=== PATIENT | female | born 1990 | race African-American/Black ===

== ENCOUNTER 2017-02-12 08:12 | Inpatient (IN) | payer MEDICAID, OTHER ==
[~2017-02-12] VITALS: Ht 165.1 cm; Wt 67.2 kg
[2017-02-12] VITALS (9 sets, daily range): BP systolic 98–142; BP diastolic 54–72; PULSE 66–83; RESP 11–21; TEMP 97.6–98.9; O2SAT 93–97
[~2017-02-12 08:12] MED LIST: ALBU8I INH; FOLI1 PO; GABA100C4 PO
--- NOTE | 2017-02-12 08:45 | PD ---
HPI Chief Complaint: Chest Pain Time Seen by Provider: 08:45 Travel History International Travel<30 days: No Contact w/Intl Traveler<30days: No Traveled to known affect area: No History of Present Illness HPI 26-year-old female came to the emergency room with history of chest pain that started at 7 in the morning while she was walking. Patient says that the pain worsened as time progressed and she called 911. She was brought in by EMS. Pain is at the center of the chest and is tightening kind of sensation. She does have history of asthma. No difficulty breathing. Patient has history of sickle cell disease. Vital signs are stable when she arrived. Patient says her last admission for sickle cell crisis was 2 months ago. No aggravating or relieving factors identified. FOR[facility]LY [facility] Past Medical History Narrative Medical List of her past medical, surgical, social and family history is reviewed from the nursing note. Anemia: Yes Arthritis: No Asthma: Yes Autoimmune Disease: No Anxiety: No Depression: No Heart Rhythm Problems: No Cancer: No Cardiovascular Problems: Yes (HEART MURMUR ) Chemotherapy: No Chest Pain: No Congestive Heart Failure: No COPD: No Cerebrovascular Accident: No Diabetes: No Diminished Hearing: No Endocrine: No Gastrointestinal Disorders: Yes GERD: No Genitourinary: No Headaches: Yes Hiatal Hernia: No Immune Disorder: No Implanted Vascular Access Dvce: Yes (RIGHT CHEST PORT) Kidney Stones: No Musculoskeletal: No Neurologic: Yes Psychiatric: No Reproductive: No Respiratory: Yes ("CHRONIC LUNG DISEASE") Immunizations Current: Yes Migraines: No Pneumonia: Yes Radiation Therapy: No Renal Failure: No Seizures: Yes Sickle Cell Disease: Yes Sleep Apnea: No Thyroid Disease: No Ulcer: No ?: Not LMP: 12/31/2016 : 3 Para: 2 Miscarriage: 1 Tubal Ligation: Yes Past Surgical History Abdominal Surgery: Yes ( 2 liver biopsies) AICD: No Arteriovenous Shunt: No Body Medical Devices: screw in right hand Cardiac Surgery: No Section: Yes (X 2) Cholecystectomy: Yes Ear Surgery: No Endocrine Surgery: Yes Eye Surgery: No Genitourinary Surgery: No Gynecologic Surgery: Yes (tubal ligation, 2 c- sections) Insulin Pump: No Joint Replacement: No Oral Surgery: No Pacemaker: No Thoracic Surgery: No Other Surgery: Yes (PORT PLACEMENT) Social History Alcohol Use: No Tobacco Use: No Substance Use: No Allergies-Medications (Allergen,Severity, Reaction): Coded Allergies: metoclopramide (Verified Allergy, Severe, 02/12/17) morphine (Verified Allergy, Severe, 02/12/17) *MDRO Multi-Drug Resistant Organism (Verified Adverse Reaction, Unknown, 02/12/17) MRSA PCR Screen positive 08/04/14. Comments List of allergies reviewed from the nursing note. Reported Meds & Prescriptions Reported Meds & Active Scripts Active Folate 1 Mg Tab (Folic Acid) 1 Mg Tab 1 Mg PO DAILY 30 Days Reported Ventolin Hfa (Albuterol Sulfate) 8 Gm Aero 2 Puff INH Q4 * SHAKE WELL BEFORE USE * Gabapentin 100 Mg Cap 100 Mg PO TID Narrative Medication List of her home medications reviewed from the nursing note. Review of Systems Except as stated in HPI: all other systems reviewed are Neg Physical Exam Narrative GENERAL: Awake, alert, moderate distress SKIN: Focused skin assessment warm/dry. Pale HEAD: Atraumatic. Normocephalic. EYES: Pupils equal and round. No scleral icterus. No injection or drainage. ENT: No nasal bleeding or discharge. Mucous membranes pink and moist. NECK: Trachea midline. No JVD. CARDIOVASCULAR: Regular rate and rhythm. No murmur appreciated. RESPIRATORY: No accessory muscle use. Clear to auscultation. Breath sounds equal bilaterally. GASTROINTESTINAL: Abdomen soft, non-tender, nondistended. Hepatic and splenic margins not palpable. MUSCULOSKELETAL: No obvious deformities. No clubbing. No cyanosis. No edema. NEUROLOGICAL: Awake and alert. No obvious cranial nerve deficits. Motor grossly within normal limits. Normal speech. PSYCHIATRIC: Appropriate mood and affect; insight and judgment normal. Data Data Last Documented VS Vital Signs Date Time Temp Pulse Resp B/P (MAP) Pulse Ox O2 Delivery O2 Flow Rate FiO2 02/12/17 08:40 79 12 95 Nasal Cannula 2.00 02/12/17 08:40 98.9 105/58 (74) Orders Orders Electrocardiogram (02/12/17 ) Complete Blood Count With Diff (02/12/17 09:23) Retic Count (02/12/17 09:23) Chest, Pa & Lat (02/12/17 ) Sodium Chlor 0.9% 1000 Ml Inj (Ns 1000 M (02/12/17 09:30) Type And Screen (02/12/17 11:37) Red Blood Cells (Rbc) (02/12/17 11:37) Blood Product Administration (02/12/17 11:37) Sodium Chlor 0.9% 250 Ml Inj (Ns 250 Ml (02/12/17 11:45) Hydromorphone Pf Inj (Dilaudid Pf Inj) (02/12/17 11:45) Sodium Chlor 0.9% 1000 Ml Inj (Ns 1000 M (02/12/17 11:45) Folic Acid (Folate) (02/12/17 11:45) Admit To Inpatient (02/12/17 ) Code Status (02/12/17 12:05) Vital Signs (Adult) Q4H (02/12/17 12:05) Activity Oob With Assistance (02/12/17 12:05) Diet Regular Basic (02/12/17 Lunch) Sodium Chlor 0.9% 1000 Ml Inj (Ns 1000 M (02/12/17 12:05) Sodium Chloride 0.9% Flush (Ns Flush) (02/12/17 12:15) Sodium Chloride 0.9% Flush (Ns Flush) (02/12/17 21:00) Acetaminophen (Tylenol) (02/12/17 12:15) Ondansetron Inj (Zofran Inj) (02/12/17 12:15) Comprehensive Metabolic Panel (02/13/17 06:00) Complete Blood Count With Diff (02/13/17 06:00) Case Management Consult (02/12/17 12:05) Acetaminophen (Tylenol) (02/12/17 12:15) Acetamin-Hydrocod 325-5 Mg ([place] 5-325 (02/12/17 12:15) Oxycodone-Acetamin 10-325 Mg (Percocet 1 (02/12/17 12:15) Hydromorphone Pf Inj (Dilaudid Pf Inj) (02/12/17 12:15) Naloxone Inj (Narcan Inj) (02/12/17 12:15) Magnesium Hydroxide Liq (Milk Of Magnesi (02/12/17 12:15) Inpatient Certification (02/12/17 ) Ldh Serum (02/12/17 12:13) Enoxaparin Inj (Lovenox Inj) (02/13/17 09:00) Admit Order (Ed Use Only) (02/12/17 12:21) Labs Laboratory Tests Test 02/12/17 10:28 White Blood Count 18.3 TH/MM3 Red Blood Count 1.91 MIL/MM3 Hemoglobin 6.7 GM/DL Hematocrit 18.7 % Mean Corpuscular Volume 97.8 FL Mean Corpuscular Hemoglobin 35.0 PG Mean Corpuscular Hemoglobin Concent 35.8 % Red Cell Distribution Width 23.9 % Platelet Count 386 TH/MM3 Mean Platelet Volume 9.1 FL Neutrophils (%) (Auto) 62.2 % Lymphocytes (%) (Auto) 20.5 % Monocytes (%) (Auto) 14.7 % Eosinophils (%) (Auto) 1.4 % Basophils (%) (Auto) 1.2 % Neutrophils # (Auto) 11.3 TH/MM3 Lymphocytes # (Auto) 3.8 TH/MM3 Monocytes # (Auto) 2.7 TH/MM3 Eosinophils # (Auto) 0.3 TH/MM3 Basophils # (Auto) 0.2 TH/MM3 CBC Comment AUTO DIFF Differential Total Cells Counted 100 Neutrophils % (Manual) 60 % Band Neutrophils % 1 % Lymphocytes % 24 % Monocytes % 10 % Eosinophils % 3 % Basophils % 1 % Neutrophils # (Manual) 11.3 TH/MM3 Myelocytes 1 % Nucleated Red Blood Cells 13 /100 WBC Differential Comment FINAL DIFF MANUAL Platelet Estimate NORMAL Platelet Morphology Comment NORMAL Polychromasia 5.8 % Sickle Cells 1+ Target Cells 1+ Ngo-[place] Bodies PRESENT MDM Medical Decision Making Medical Screen Exam Complete: Yes Emergency Medical Condition: Yes Medical Record Reviewed: Yes Interpretation(s) Twelve-lead EKG was reviewed by me. Normal sinus rhythm, normal axis, anterior T-wave inversions. Heart rate of 94 bpm. Differential Diagnosis Painful crisis, chest pain syndrome Narrative Course 12:27 PM blood test results of back and patient is significantly anemic. I have ordered 2 units of blood transfusion. Patient has been admitted to the hospitalist. She was given IV fluid and pain medication. Critical Care Narrative Aggregate critical care time was 30 minutes. Time to perform other separately billable procedures was not included in the critical care time. My time did not include minutes spent treating any other patients simultaneously or on activities that did not directly contribute to the patient's treatment. The services I provided to this patient were to treat and/or prevent clinically significant deterioration that could result in: Sickle cell crisis, anemia, blood transfusion I provided critical care services requiring my management, as noted below: Chart data review, documentation time, medication orders and management, vital sign assessments/reviewing monitor data, ordering and reviewing lab tests, ordering and interpreting/reviewing x-rays and diagnostic studies, care of the patient and discussion of the patient with the admitting physicians. Procedures EKG Prior to Arrival: No Diagnosis Primary Impression: Sickle cell pain crisis Additional Impressions: Chest pain Qualified Codes: R07.9 - Chest pain, unspecified Sickle cell anemia Qualified Codes: D57.00 - Hb-SS disease with crisis, unspecified Admitting Information Admitting Physician Requests: Meghan Avila MD Feb 12, 2017 08:45
[2017-02-12] MEDS ORDERED: SODIUM CHLOR 0.9% 1000 ML INJ 1,000 ML IV ONE ×2 (09:30→11:45)
--- NOTE | 2017-02-12 09:47 | RADRPT ---
EXAM DATE/TIME: 02/12/2017 09:45 [facility] COMPARISON: CHEST PA & LAT, November 29, 2014, 0:25. INDICATIONS : Chest pain. MEDICAL HISTORY : Hypertension. asthma. SURGICAL HISTORY : None. Port placement. ENCOUNTER: Initial ACUITY: 1 day PAIN SCORE: 10/10 LOCATION: middle chest. FINDINGS: The supporting good position. Lungs are clear. Left-sided line is noted. The heart and pulmonary va scularity are normal. The portion of the bony skeleton visualized is unremarkable. CONCLUSION: Lungs are clear. Rick Gallegos MD FACR on February 12, 2017 at 9:45 Board Certified Radiologist. This report was verified electronically.
[2017-02-12 10:41] LABS: AUTOMATED NEUTROPHIL # 11.3 TH/MM3 (1.8-7.7); BASOPHIL # 0.2 TH/MM3 (0-0.2); BASOPHIL % 1.2 % (0.0-2.0); EOSINOPHIL # 0.3 TH/MM3 (0-0.4); EOSINOPHIL % 1.4 % (0.0-4.0); LYMPH % 20.5 % (9.0-44.0); LYMPHOCYTE # 3.8 TH/MM3 (1.0-4.8); MEAN CELL VOLUME 97.8 FL (80.0-100.0); MEAN CORPUSCULAR HGB CONC 35.8 % (32.0-36.0); MONO % 14.7 % (0.0-8.0); NEUT % 62.2 % (16.0-70.0); PLATELET COUNT 386 TH/MM3 (150-450); RED BLOOD COUNT 1.91 MIL/MM3 (4.00-5.30); RED CELL DISTRIBUTION WIDTH 23.9 % (11.6-17.2); WHITE BLOOD COUNT 18.3 TH/MM3 (4.0-11.0)
[2017-02-12 10:43] LABS: HEMO FLAGS AUTO DIFF
[2017-02-12 10:46] LABS: HEMATOCRIT 18.7 % (35.0-46.0)
[2017-02-12 11:23] LABS: BANDS 1 % (0-6); BASOPHILS 1 % (0-2); CORRECTED NUCLEATED RBC 13 /100 WBC (0-0); EOSINOPHILS 3 % (0-4); MYELOCYTES 1 % (0-0); NEUTROPHIL # MANUAL DIFF 11.3 TH/MM3 (1.8-7.7); POLYS (SEG NEUTROPHILS) 60 % (16-70); WBC DIFF SAMPLE 100
[2017-02-12 11:24] LABS: HOWELL-JOLLY BODIES PRESENT (NONE SEEN); PLATELET ESTIMATE SMEAR NORMAL (NORMAL); PLATELET MORPHOLOGY NORMAL (NORMAL); POLYCHROMASIA 5.8 % (0.0-1.9); SICKLE CELLS 1+ (NORMAL); TARGET CELLS 1+ (NORMAL)
[2017-02-12 11:25] LABS: SCAN/DIFF FINAL DIFF MANUAL
[2017-02-12] MEDS ORDERED: FOLIC ACID 1 MG TAB PO ONE (11:45)
[2017-02-12] MEDS ORDERED: HYDROmorphone HCL PF 1 MG/ML VIAL IV PUSH ONE (11:45)
[2017-02-12] MEDS ORDERED: SODIUM CHLOR 0.9% 250 ML INJ 250 ML IV ONE (11:45)
[2017-02-12] MEDS ORDERED: SODIUM CHLOR 0.9% 1000 ML INJ 1,000 ML IV SCH (12:05)
--- NOTE | 2017-02-12 12:11 | HHI.HP ---
[facility] Admission Diagnosis Diagnoses: (1) Gastroenteritis (2) Sickle cell pain crisis (3) Sickle cell anemia Chief Complaint: Chest pain, nausea, diarrhea and vomiting Travel History International Travel<30 Days: No Contact w/Intl Traveler <30 Da: No Traveled to Known Affected Are: No History of Present Illness 26-year-old female with a history of sickle cell anemia presented to the ED via [facility] for evaluation of an acute and worsening symptoms of chest pain with radiation to her back as well as upper extremities, which patient states is similar to her sickle cell crisis pain. She rated her pain over 8 in intensity. She also reported episodes of diarrhea and emesis yesterday however resolved early this morning but continued to have nausea. She states, she may have eaten some chicken 2 nights ago. Review of Systems Except as stated in HPI: all other systems reviewed are Neg Past Family Social History Past Medical History Sickle Cell disease Asthma Right chest port Elevated Liver function tests Questionable Cirrhosis Iron Overload Severe Chronic Anemia Past Surgical History Cholecystectomy Liver biopsy x 2 C section x 2 Tubal ligation Double lumen port placement Right hand surgery post trauma Reported Medications Folate 1 Mg Tab (Folic Acid) 1 Mg Tab 1 Mg PO DAILY 30 Days Hydroxyurea 500 mg twice a day Ventolin Hfa (Albuterol Sulfate) 8 Gm Aero 2 Puff INH Q4 * SHAKE WELL BEFORE USE * Gabapentin 100 Mg Cap 100 Mg PO TID Allergies: Coded Allergies: metoclopramide (Verified Allergy, Severe, 02/12/17) morphine (Verified Allergy, Severe, 02/12/17) *MDRO Multi-Drug Resistant Organism (Verified Adverse Reaction, Unknown, 02/12/17) MRSA PCR Screen positive 08/04/14. Family History Mom with sickle cell trait, diabetes type 2, hypertension, factor V Leiden deficiency, heart disease Dad with sickle cell trait One sister with thalassemia Social History Alcohol Use: No Tobacco Use: No Substance Use: No Physical Exam Vital Signs Vital Signs Date Time Temp Pulse Resp B/P (MAP) Pulse Ox O2 Delivery O2 Flow Rate FiO2 02/12/17 08:40 79 12 95 Nasal Cannula 2.00 02/12/17 08:40 98.9 79 12 105/58 (74) 95 Nasal Cannula 2.00 Physical Exam GENERAL: This is a well-nourished, well-developed patient, in no apparent distress. SKIN: No rashes, ecchymoses or lesions. Cool and dry. HEAD: Atraumatic. Normocephalic. No temporal or scalp tenderness. EYES: Pupils equal round and reactive. Extraocular motions intact. No scleral icterus. No injection or drainage. ENT: Nose without bleeding, purulent drainage or septal hematoma. Throat without erythema, tonsillar hypertrophy or exudate. Uvula midline. Airway patent. NECK: Trachea midline. No JVD or lymphadenopathy. Supple, nontender, no meningeal signs. CARDIOVASCULAR: Regular rate and rhythm without murmurs, gallops, or rubs. RESPIRATORY: Clear to auscultation. Breath sounds equal bilaterally. No wheezes , rales, or rhonchi. GASTROINTESTINAL: Abdomen soft, non-tender, nondistended. No hepato-splenomegaly , or palpable masses. No guarding. MUSCULOSKELETAL: Extremities without clubbing, cyanosis, or edema. No joint tenderness, effusion, or edema noted. No calf tenderness. Negative Homans sign bilaterally. NEUROLOGICAL: Awake and alert. Cranial nerves II through XII intact. Motor and sensory grossly within normal limits. Five out of 5 muscle strength in all muscle groups. Normal speech. Laboratory Laboratory Tests Test 02/12/17 10:28 White Blood Count 18.3 Red Blood Count 1.91 Hemoglobin 6.7 Hematocrit 18.7 Mean Corpuscular Volume 97.8 Mean Corpuscular Hemoglobin 35.0 Mean Corpuscular Hemoglobin Concent 35.8 Red Cell Distribution Width 23.9 Platelet Count 386 Mean Platelet Volume 9.1 Neutrophils (%) (Auto) 62.2 Lymphocytes (%) (Auto) 20.5 Monocytes (%) (Auto) 14.7 Eosinophils (%) (Auto) 1.4 Basophils (%) (Auto) 1.2 Neutrophils # (Auto) 11.3 Lymphocytes # (Auto) 3.8 Monocytes # (Auto) 2.7 Eosinophils # (Auto) 0.3 Basophils # (Auto) 0.2 CBC Comment AUTO DIFF Differential Total Cells Counted 100 Neutrophils % (Manual) 60 Band Neutrophils % 1 Lymphocytes % 24 Monocytes % 10 Eosinophils % 3 Basophils % 1 Neutrophils # (Manual) 11.3 Myelocytes 1 Nucleated Red Blood Cells 13 Differential Comment FINAL DIFF MANUAL Platelet Estimate NORMAL Platelet Morphology Comment NORMAL Polychromasia 5.8 Sickle Cells 1+ Target Cells 1+ Ngo-[place] Bodies PRESENT Result Diagram: 02/12/17 1028 Imaging Last Impressions Chest X-Ray 02/12/17 0000 Signed Impressions: Service Date/Time: Sunday, February 12, 2017 09:45 - CONCLUSION: Lungs are clear. Rick Gallegos MD FACR Caprini VTE Risk Assessment Caprini VTE Risk Assessment: No/Low Risk (score <= 1) Caprini Risk Assessment Model Point Value = 1 Point Value = 2 Point Value = 3 Point Value = 5 Age 41-60 Minor surgery BMI > 25 kg/m2 Swollen legs Varicose veins or History of unexplained or recurrent spontaneous Oral contraceptives or hormone replacement Sepsis (< 1 month) Serious lung disease, including pneumonia (< 1 month) Abnormal pulmonary function Acute myocardial infarction Congestive heart failure (< 1 month) History of inflammatory bowel disease Medical patient at bed rest Age 61-74 Arthroscopic surgery Major open surgery (> 45 min) Laparoscopic surgery (> 45 min) Malignancy Confined to bed (> 72 hours) Immobilizing plaster cast Central venous access Age >= 75 History of VTE Family history of VTE Factor V Leiden Prothrombin [id number] Lupus anticoagulant Anticardiolipin antibodies Elevated serum homocysteine Heparin-induced thrombocytopenia Other congenital or acquired thrombophilia Stroke (< 1 month) Elective arthroplasty Hip, pelvis, or leg fracture Acute spinal cord injury (< 1 month) Prophylaxis Regimen Total Risk Factor Score Risk Level Prophylaxis Regimen 0-1 Low Early ambulation 2 Moderate Order ONE of the following: *Sequential Compression Device (SCD) *Heparin 5000 units SQ BID 3-4 Higher Order ONE of the following medications: *Heparin 5000 units SQ TID *Enoxaparin/Lovenox 40 mg SQ daily (WT < 150 kg, CrCl > 30 mL/min) *Enoxaparin/Lovenox 30 mg SQ daily (WT < 150 kg, CrCl > 10-29 mL/min) *Enoxaparin/Lovenox 30 mg SQ BID (WT < 150 kg, CrCl > 30 mL/min) AND/OR *Sequential Compression Device (SCD) 5 or more Highest Order ONE of the following medications: *Heparin 5000 units SQ TID (Preferred with Epidurals) *Enoxaparin/Lovenox 40 mg SQ daily (WT < 150 kg, CrCl > 30 mL/min) *Enoxaparin/Lovenox 30 mg SQ daily (WT < 150 kg, CrCl > 10-29 mL/min) *Enoxaparin/Lovenox 30 mg SQ BID (WT < 150 kg, CrCl > 30 mL/min) AND *Sequential Compression Device (SCD) Assessment and Plan Problem List: (1) Sickle cell pain crisis ICD Code: D57.00 - Sickle cell pain crisis Status: Acute (2) Sickle cell anemia ICD Code: D57.1 - Sickle cell anemia Status: Chronic (3) Gastroenteritis ICD Code: K52.9 - Noninfective gastroenteritis and colitis, unspecified Assessment and Plan 26-year-old female with Vaso-occlusive pain crisis Sickle cell crisis Chest x-ray noted and review by me without any cardio pulmonary disease The chest pain likely as the result of emesis and not acute chest syndrome Start Aggressive IV fluid hydration Management with IV parenteral pain control along with by mouth narcotics when necessary Monitor LDH and reticulocyte counts Consider hematology consultation Sickle cell anemia Transfuse 2 units packed red blood cell and monitor H&H Sickle cell disease Hold hydroxyurea Resume folate Gastroenteritis Resolving, continue with IV fluid hydration and antiemetic DVT prophylaxis: Lovenox Code Status Full code Discussed Condition With Patient, ED physician Physician Certification 2 Midnight Certification Type: Admission for Inpatient Services Order for Inpatient Services The services are ordered in accordance with Medicare regulations or non- Medicare payer requirements, as applicable. In the case of services not specified as inpatient-only, they are appropriately provided as inpatient services in accordance with the 2-midnight benchmark. Estimated LOS (days): 2 days is the estimated time the patient will need to remain in the hospital, assuming treatment plan goals are met and no additional complications. Post-Hospital Plan: Not yet determined Problem Qualifiers (1) Sickle cell anemia: Qualified Codes: D57.00 - Hb-SS disease with crisis, unspecified Clyde Syed MD Feb 12, 2017 12:11
[2017-02-12] MEDS ORDERED: ACETAMINOPHEN 325 MG TAB PO PRN ×4 (12:15→15:30)
[2017-02-12] MEDS ORDERED: NALOXONE HCL 0.4 MG/ML AMP IV PUSH PRN ×2 (12:15→15:30)
[2017-02-12] MEDS ORDERED: oxyCODONE/ACETAMINOPHEN 10 MG/325 MG TAB PO PRN (12:15)
[2017-02-12] MEDS ORDERED: MAGNESIUM HYDROXIDE SUSP 30 ML CUP PO PRN ×2 (12:15→15:30)
[2017-02-12] MEDS ORDERED: ONDANSETRON HCL 4 MG/2 ML VIAL IVP PRN (12:15)
[2017-02-12] MEDS ORDERED: HYDROmorphone HCL PF 1 MG/ML VIAL IV PUSH PRN (12:15)
[2017-02-12] MEDS ORDERED: ACETAMINOPHEN/HYDROcodone 325 MG/5 MG TAB PO PRN (12:15)
[2017-02-12] MEDS ORDERED: SODIUM CHLORIDE 0.9% FLUSH 10 ML FLUSH IV FLUSH PRN ×2 (12:15→15:30)
[2017-02-12 13:22] LABS: RETIC % 18.7 % (0.4-3.0)
[2017-02-12 13:25] LABS: REVIEW FLAG FINAL
--- NOTE | 2017-02-12 13:42 | EKG ---
Date Performed: 02/12/2017 Time Performed: 08:53:25 PTAGE: 26 years EKG: Sinus rhythm NORMAL ECG PREVIOUS TRACING : 02/19/2015 17.35 DOCTOR: Isrrael Montenegro Interpretating Date/Time 02/12/2017 13:40:06
[2017-02-12] MEDS ORDERED: FOLI400T PO (14:05)
[2017-02-12] MEDS: ONDANSETRON HCL 4 MG/2 ML VIAL IVP PRN (20:38)
[2017-02-12] MEDS: SODIUM CHLORIDE 0.9% FLUSH 10 ML FLUSH IV FLUSH SCH (20:39)
[2017-02-12] MEDS: HYDROmorphone HCL PF 2 MG/ML VIAL IV PUSH PRN (20:39)
[2017-02-12] MEDS: SODIUM CHLOR 0.9% 1000 ML INJ 1,000 ML IV SCH (20:45)
[2017-02-12] MEDS ORDERED: SODIUM CHLORIDE 0.9% FLUSH 10 ML FLUSH IV FLUSH SCH (21:00)
[2017-02-12] MEDS: diphenhydrAMINE HCL 50 MG/ML VIAL IV PUSH PRN (23:52)
[2017-02-12] MEDS: oxyCODONE/ACETAMINOPHEN 10 MG/325 MG TAB PO PRN (23:52)
[2017-02-13] VITALS (7 sets, daily range): BP systolic 97–135; BP diastolic 53–68; PULSE 58–78; RESP 16–17; TEMP 97.2–99; O2SAT 92–100
[2017-02-13] MEDS: diphenhydrAMINE HCL 50 MG/ML VIAL IV PUSH PRN ×2 (03:04→06:55)
[2017-02-13] MEDS: HYDROmorphone HCL PF 2 MG/ML VIAL IV PUSH PRN ×4 (03:04→20:03)
[2017-02-13] MEDS: ONDANSETRON HCL 4 MG/2 ML VIAL IVP PRN ×3 (03:04→20:03)
[2017-02-13] MEDS: ACETAMINOPHEN/HYDROcodone 325 MG/5 MG TAB PO PRN ×2 (04:48→18:37)
[2017-02-13] MEDS ORDERED: ENOXAPARIN SODIUM 40 MG/0.4 ML SYRINGE SQ SCH (09:00)
[2017-02-13] MEDS: SODIUM CHLORIDE 0.9% FLUSH 10 ML FLUSH IV FLUSH SCH ×2 (09:00→20:04)
[2017-02-13] MEDS ORDERED: FOLIC ACID 1 MG TAB PO SCH (09:00)
[2017-02-13] MEDS: FOLIC ACID 1 MG TAB PO SCH (09:34)
[2017-02-13] MEDS: ENOXAPARIN SODIUM 40 MG/0.4 ML SYRINGE SQ SCH (09:36)
[2017-02-13] MEDS ORDERED: INFLUENZA VIRUS VACCINE (QUADRIVALENT) 0.5 ML SYR IM ONE (10:00)
[2017-02-13] MEDS ORDERED: PNEUMOCOCCAL POLYVALENT INJ 25 MCG/0.5 ML SYR IM ONE (10:00)
--- NOTE | 2017-02-13 10:05 | HHI.PR ---
Subjective Remarks Follow-up vaso-occlusive crises/sickle cell anemia/gastroenteritis 02/13/17-patient seen and examined, she was transfused 2 units packed red blood cells yesterday. Currently tolerating by mouth without any competition nausea and vomiting. She denies any episode of diarrhea. Patient now only complains of pain to her knees. Reports improvement of anterior chest pain. Objective Vitals Vital Signs Date Time Temp Pulse Resp B/P (MAP) Pulse Ox O2 Delivery O2 Flow Rate FiO2 02/13/17 09:40 18 02/13/17 04:00 97.7 67 17 107/63 (78) 92 02/13/17 00:00 97.2 58 16 121/62 (81) 100 02/12/17 23:00 97.6 66 18 112/72 97 02/12/17 20:06 98.2 83 16 112/64 (80) 93 02/12/17 19:52 98.3 83 18 112/64 93 02/12/17 19:45 97.9 77 16 142/65 (90) 97 02/12/17 15:55 02/12/17 15:29 98.2 73 12 101/57 96 02/12/17 15:13 98.6 76 17 98/54 02/12/17 15:10 76 11 98/54 (69) 96 Nasal Cannula 02/12/17 13:12 83 21 108/61 (77) 95 Nasal Cannula 2.00 I/O 02/12/17 02/12/17 02/12/17 02/13/17 02/13/17 02/13/17 06:59 14:59 22:59 06:59 14:59 22:59 Intake Total 2000 ml 902 ml 1130 ml Balance 2000 ml 902 ml 1130 ml Intake Oral 720 ml IV Total 2000 ml Packed Cells 400 ml 400 ml Blood Product IV Normal Saline Flush 502 ml 10 ml # Voids 2 Result Diagram: 02/12/17 1028 Imaging Last Impressions Chest X-Ray 02/12/17 0000 Signed Impressions: Service Date/Time: Sunday, February 12, 2017 09:45 - CONCLUSION: Lungs are clear. Rick Gallegos MD FACR Objective Remarks GENERAL: NAD SKIN: Warm and dry. HEAD: Normocephalic. EYES: No scleral icterus. No injection or drainage. NECK: Supple, trachea midline. No JVD or lymphadenopathy. CARDIOVASCULAR: Regular rate and rhythm without murmurs, gallops, or rubs. RESPIRATORY: Breath sounds equal bilaterally. No accessory muscle use. GASTROINTESTINAL: Abdomen soft, non-tender, nondistended. MUSCULOSKELETAL: No cyanosis, or edema. BACK: Nontender without obvious deformity. No CVA tenderness. A/P Problem List: (1) Sickle cell pain crisis ICD Code: D57.00 - Sickle cell pain crisis Status: Acute (2) Sickle cell anemia ICD Code: D57.1 - Sickle cell anemia Status: Chronic (3) Gastroenteritis ICD Code: K52.9 - Noninfective gastroenteritis and colitis, unspecified Assessment and Plan 26-year-old female with Vaso-occlusive pain crisis Sickle cell crisis Chest x-ray without any cardio pulmonary disease Continue Aggressive IV fluid hydration Management with IV parenteral pain control along with by mouth narcotics when necessary Consider hematology consultation Sickle cell anemia Transfused 2 units packed red blood cell and monitor H&H CBC pending this morning Sickle cell disease Hold hydroxyurea Continue folate Gastroenteritis Resolved, continue with IV fluid hydration and antiemetic DVT prophylaxis: Lovenox Discharge Planning Likely discharge in 1-2 days Problem Qualifiers (1) Sickle cell anemia: Qualified Codes: D57.00 - Hb-SS disease with crisis, unspecified Clyde Syed MD Feb 13, 2017 10:05
[2017-02-13] MEDS: oxyCODONE/ACETAMINOPHEN 10 MG/325 MG TAB PO PRN ×3 (10:20→22:38)
[2017-02-13] MEDS: SODIUM CHLOR 0.9% 1000 ML INJ 1,000 ML IV SCH ×2 (11:34→20:04)
[2017-02-13 11:50] LABS: AUTOMATED NEUTROPHIL # 7.6 TH/MM3 (1.8-7.7); BASOPHIL # 0.3 TH/MM3 (0-0.2); BASOPHIL % 2.2 % (0.0-2.0); EOSINOPHIL # 0.6 TH/MM3 (0-0.4); HEMATOCRIT 23.2 % (35.0-46.0); LYMPH % 29.2 % (9.0-44.0); LYMPHOCYTE # 4.4 TH/MM3 (1.0-4.8); MEAN CORPUSCULAR HEMOGLOBIN 33.6 PG (27.0-34.0); MEAN CORPUSCULAR HGB CONC 35.8 % (32.0-36.0); MONO % 14.3 % (0.0-8.0); NEUT % 50.3 % (16.0-70.0); PLATELET COUNT 425 TH/MM3 (150-450); RED BLOOD COUNT 2.47 MIL/MM3 (4.00-5.30); RED CELL DISTRIBUTION WIDTH 21.9 % (11.6-17.2); WHITE BLOOD COUNT 15.1 TH/MM3 (4.0-11.0)
[2017-02-13 11:57] LABS: HEMO FLAGS AUTO DIFF
[2017-02-13 12:42] LABS: BANDS 1 % (0-6); BASOPHILS 1 % (0-2); CORRECTED NUCLEATED RBC 10 /100 WBC (0-0); EOSINOPHILS 1 % (0-4); NEUTROPHIL # MANUAL DIFF 6.6 TH/MM3 (1.8-7.7); POLYS (SEG NEUTROPHILS) 43 % (16-70); WBC DIFF SAMPLE 100
[2017-02-13 12:43] LABS: PLATELET ESTIMATE SMEAR HIGH (NORMAL); PLATELET MORPHOLOGY ENLARGED (NORMAL); SICKLE CELLS 1+ (NORMAL)
[2017-02-13 12:44] LABS: POLYCHROMASIA 4.9 % (0.0-1.9); TARGET CELLS 1+ (NORMAL)
[2017-02-13 12:45] LABS: SCAN/DIFF FINAL DIFF MANUAL
[2017-02-14] VITALS: BP 99/56; PULSE 67; RESP 20; TEMP 98.1; O2SAT 93
[2017-02-14] MEDS: HYDROmorphone HCL PF 2 MG/ML VIAL IV PUSH PRN ×2 (00:46→07:14)
[2017-02-14 04:00] VITALS: BP 98/56; PULSE 67; RESP 18; TEMP 98.1; O2SAT 94
[2017-02-14] MEDS: oxyCODONE/ACETAMINOPHEN 10 MG/325 MG TAB PO PRN (05:08)
[2017-02-14] MEDS: SODIUM CHLOR 0.9% 1000 ML INJ 1,000 ML IV SCH (05:08)
[2017-02-14 08:07] VITALS: BP 99/57; PULSE 73; RESP 17; TEMP 98.4; O2SAT 94
[2017-02-14] MEDS: SODIUM CHLORIDE 0.9% FLUSH 10 ML FLUSH IV FLUSH SCH (08:10)
[2017-02-14] MEDS: ENOXAPARIN SODIUM 40 MG/0.4 ML SYRINGE SQ SCH (08:11)
[2017-02-14] MEDS: FOLIC ACID 1 MG TAB PO SCH (08:11)
[2017-02-14 08:54] VITALS: PULSE 62
--- NOTE | 2017-02-14 10:09 | HHI.PR ---
Subjective Remarks Follow-up vaso-occlusive crises/sickle cell anemia/gastroenteritis 02/13/17-patient seen and examined, she was transfused 2 units packed red blood cells yesterday. Currently tolerating by mouth without any competition nausea and vomiting. She denies any episode of diarrhea. Patient now only complains of pain to her knees. Reports improvement of anterior chest pain. 02/14/17-patient seen and examined, reports significant improvement of pain which is now down to 3. Patient only complain of itching otherwise stable. Would Like to go home today. Objective Vitals Vital Signs Date Time Temp Pulse Resp B/P (MAP) Pulse Ox O2 Delivery O2 Flow Rate FiO2 02/14/17 08:54 62 02/14/17 08:26 Nasal Cannula 2.00 02/14/17 08:07 98.4 73 17 99/57 (71) 94 02/14/17 08:07 20 02/14/17 04:00 98.1 67 18 98/56 (70) 94 02/14/17 00:00 98.1 67 20 99/56 (70) 93 02/13/17 20:00 98.2 02/13/17 20:00 75 02/13/17 17:45 65 02/13/17 16:55 16 02/13/17 16:06 99.0 77 16 97/53 (68) 92 02/13/17 12:06 98.0 75 16 104/62 (76) 96 I/O 02/13/17 02/13/17 02/13/17 02/14/17 02/14/17 02/14/17 07:00 15:00 23:00 07:00 15:00 23:00 Intake Total 720 ml 520 ml 1600 ml Balance 720 ml 520 ml 1600 ml Intake Oral 720 ml 520 ml 600 ml IV Total 1000 ml # Voids 2 4 2 # Bowel Movements 1 Result Diagram: 02/13/17 1125 Imaging Last Impressions Chest X-Ray 02/12/17 0000 Signed Impressions: Service Date/Time: Sunday, February 12, 2017 09:45 - CONCLUSION: Lungs are clear. Rick Gallegos MD FACR Objective Remarks GENERAL: NAD SKIN: Warm and dry. HEAD: Normocephalic. EYES: No scleral icterus. No injection or drainage. NECK: Supple, trachea midline. No JVD or lymphadenopathy. CARDIOVASCULAR: Regular rate and rhythm without murmurs, gallops, or rubs. RESPIRATORY: Breath sounds equal bilaterally. No accessory muscle use. GASTROINTESTINAL: Abdomen soft, non-tender, nondistended. MUSCULOSKELETAL: No cyanosis, or edema. BACK: Nontender without obvious deformity. No CVA tenderness. Procedures none A/P Problem List: (1) Sickle cell pain crisis ICD Code: D57.00 - Sickle cell pain crisis Status: Resolved (2) Sickle cell anemia ICD Code: D57.1 - Sickle cell anemia Status: Chronic (3) Gastroenteritis ICD Code: K52.9 - Noninfective gastroenteritis and colitis, unspecified Status: Resolved Assessment and Plan 26-year-old female with Vaso-occlusive pain crisis Sickle cell crisis Improving Chest x-ray without any cardio pulmonary disease Continue Aggressive IV fluid hydration Management with IV parenteral pain control along with by mouth narcotics when necessary Sickle cell anemia Transfused 2 units packed red blood cell and monitor H&H H&H stable Sickle cell disease Resume hydroxyurea Continue folate Gastroenteritis Resolved, continue with IV fluid hydration and antiemetic DVT prophylaxis: Lovenox Discharge Planning Likely discharge in 1-2 days Problem Qualifiers (1) Sickle cell anemia: Qualified Codes: D57.00 - Hb-SS disease with crisis, unspecified Clyde Syed MD Feb 14, 2017 10:09
[2017-02-14] MEDS ORDERED: VIST25CA PO (10:23)
[2017-02-14] MEDS ORDERED: HYDR-3516 PO (10:23)
--- NOTE | 2017-02-14 10:26 | HHI.DS ---
Discharge Summary Admission Date Feb 12, 2017 at 12:22 Discharge Date: Feb 14, 2017 Admitting Diagnosis (1) Sickle cell pain crisis ICD Code: D57.00 - Sickle cell pain crisis Status: Resolved (2) Sickle cell anemia ICD Code: D57.1 - Sickle cell anemia Status: Chronic (3) Gastroenteritis ICD Code: K52.9 - Noninfective gastroenteritis and colitis, unspecified Status: Resolved Procedures none Brief History - From Admission 26-year-old female with a history of sickle cell anemia presented to the ED via [facility] for evaluation of an acute and worsening symptoms of chest pain with radiation to her back as well as upper extremities, which patient states is similar to her sickle cell crisis pain. She rated her pain over 8 in intensity. She also reported episodes of diarrhea and emesis yesterday however resolved early this morning but continued to have nausea. She states, she may have eaten some chicken 2 nights ago. CBC/BMP: 02/13/17 1125 Significant Findings Laboratory Tests Test 02/12/17 10:28 02/13/17 06:30 02/13/17 11:25 White Blood Count 18.3 TH/MM3 (4.0-11.0) 15.1 TH/MM3 (4.0-11.0) Red Blood Count 1.91 MIL/MM3 (4.00-5.30) 2.47 MIL/MM3 (4.00-5.30) Hemoglobin 6.7 GM/DL (11.6-15.3) 8.3 GM/DL (11.6-15.3) Hematocrit 18.7 % (35.0-46.0) 23.2 % (35.0-46.0) Mean Corpuscular Hemoglobin 35.0 PG (27.0-34.0) Red Cell Distribution Width 23.9 % (11.6-17.2) 21.9 % (11.6-17.2) Monocytes (%) (Auto) 14.7 % (0.0-8.0) 14.3 % (0.0-8.0) Neutrophils # (Auto) 11.3 TH/MM3 (1.8-7.7) Monocytes # (Auto) 2.7 TH/MM3 (0-0.9) 2.2 TH/MM3 (0-0.9) Monocytes % 10 % (0-8) 14 % (0-8) Neutrophils # (Manual) 11.3 TH/MM3 (1.8-7.7) Myelocytes 1 % (0-0) Nucleated Red Blood Cells 13 /100 WBC (0-0) 10 /100 WBC (0-0) Polychromasia 5.8 % (0.0-1.9) 4.9 % (0.0-1.9) Sickle Cells 1+ (NORMAL) 1+ (NORMAL) Target Cells 1+ (NORMAL) 1+ (NORMAL) Reticulocyte Count 18.7 % (0.4-3.0) Absolute Reticulocyte Count 340.1 MIL/L (20.0-150.0) Lactate Dehydrogenase 452 U/L (84-246) Basophils (%) (Auto) 2.2 % (0.0-2.0) Eosinophils # (Auto) 0.6 TH/MM3 (0-0.4) Basophils # (Auto) 0.3 TH/MM3 (0-0.2) Platelet Estimate HIGH (NORMAL) Platelet Morphology Comment ENLARGED (NORMAL) Imaging Last Impressions Chest X-Ray 02/12/17 0000 Signed Impressions: Service Date/Time: Sunday, February 12, 2017 09:45 - CONCLUSION: Lungs are clear. Rick Gallegos MD FACR PE at Discharge GENERAL: NAD SKIN: Warm and dry. HEAD: Normocephalic. EYES: No scleral icterus. No injection or drainage. NECK: Supple, trachea midline. No JVD or lymphadenopathy. CARDIOVASCULAR: Regular rate and rhythm without murmurs, gallops, or rubs. RESPIRATORY: Breath sounds equal bilaterally. No accessory muscle use. GASTROINTESTINAL: Abdomen soft, non-tender, nondistended. MUSCULOSKELETAL: No cyanosis, or edema. BACK: Nontender without obvious deformity. No CVA tenderness. Hospital Course Patient admitted secondary to vaso-occlusive crisis for which she was started on aggressive IV fluid hydration, pain management and monitoring of LDH and reticulocyte count were patient was also transfused 2 units packed red blood cells secondary to sickle cell anemia with improvement of H&H. Her symptoms of gastroenteritis improved with conservative treatments and patient was able to tolerate by mouth without any nausea and vomiting prior to discharge. DVT and GI prophylaxis were provided. Prior to discharge, patient's conditions improved and vitals remained stable. Pt Condition on Discharge: Stable Discharge Disposition: Discharge Home Discharge Time: <= 30 minutes Discharge Instructions DIET: Follow Instructions for: As Tolerated, No Restrictions Activities you can perform: Regular-No Restrictions Follow up Referrals: PCP Follow-up - 1 Week New Medications: Hydroxyzine Pamoate (Vistaril) 25 Mg Cap 25 MG PO TID PRN for ITCHING, #10 CAP 0 Refills Hydrocodone-Acetaminophen (Hydrocodone-Acetaminophen) 5-325 mg Tab 1 TAB PO Q4H PRN for PAIN SCALE 3 TO 5, #20 TAB Continued Medications: Folic Acid (Folic Acid) 0.4 Mg Tab 1 MG PO DAILY for Nutritional Supplement, TAB 0 Refills Clyde Syed MD Feb 14, 2017 10:25
== END 2017-02-14 12:20 | disposition home or self-care (01) | DRG 812 ==
LOC: NEPE 08:12 → NEDA 12:22 → UNDODISIN 13:27 → N04A 15:52
PROVIDERS: ADMIT Hospitalist; ATTEND Hospitalist
PROC: 30233N1 Transfusion of Nonautologous Red Blood Cells into Peripheral Vein, Percutaneous Approach (ICD-10-PCS; principal; 2017-02-12)
DX: D57.00 Hb-SS disease with crisis, unspecified (principal); J45.909 Unspecified asthma, uncomplicated; K52.9 Noninfective gastroenteritis and colitis, unspecified; Z83.3 Family history of diabetes mellitus; Z82.49 Family history of ischemic heart disease and other diseases of the circulatory system; Z84.89 Family history of other specified conditions; Z23 Encounter for immunization
CPT/HCPCS: 36430; 71020; 83615; 85007; 85027; 85044; 86850; 86900; 86901; 86920; 90686; 93005; 96360; J1170; J1200; J1650; J2405; J7030; P9016; Q2038

== ENCOUNTER 2017-03-25 21:06 | Emergency (ER) | payer OTHER ==
[~2017-03-25 21:06] MED LIST changes: -ALBU8I INH; -FOLI1 PO; +FOLI400T PO; -GABA100C4 PO; +HYDR-3516 PO; +VIST25CA PO
[2017-03-25 21:21] VITALS: BP 103/67; PULSE 113; RESP 18; TEMP 99.1; O2SAT 96
[2017-03-25 22:04] LABS: AUTOMATED NEUTROPHIL # 11.6 TH/MM3 (1.8-7.7); BASOPHIL # 0.3 TH/MM3 (0-0.2); BASOPHIL % 1.4 % (0.0-2.0); EOSINOPHIL # 0.5 TH/MM3 (0-0.4); LYMPH % 36.2 % (9.0-44.0); LYMPHOCYTE # 8.4 TH/MM3 (1.0-4.8); MEAN CELL VOLUME 98.7 FL (80.0-100.0); MEAN CORPUSCULAR HEMOGLOBIN 35.7 PG (27.0-34.0); MONO % 10.4 % (0.0-8.0); PLATELET COUNT 361 TH/MM3 (150-450); RED BLOOD COUNT 2.04 MIL/MM3 (4.00-5.30); RED CELL DISTRIBUTION WIDTH 22.3 % (11.6-17.2); RETIC % 16.2 % (0.4-3.0); WHITE BLOOD COUNT 23.2 TH/MM3 (4.0-11.0)
[2017-03-25 22:10] LABS: HEMO FLAGS AUTO DIFF; MEAN CORPUSCULAR HGB CONC 36.2 % (32.0-36.0); REVIEW FLAG AUTO DIFF
[2017-03-25 22:12] LABS: HEMATOCRIT 20.2 % (35.0-46.0)
[2017-03-25] MEDS ORDERED: HYDR500C PO (22:17)
--- NOTE | 2017-03-25 22:22 | PD ---
HPI Chief Complaint: Sickle Cell Time Seen by Provider: 22:13 Travel History International Travel<30 days: No Contact w/Intl Traveler<30days: No Traveled to known affect area: No History of Present Illness HPI 26-year-old female with history of sickle cell anemia here for evaluation of painful crisis. Patient reports that the symptoms started about an hour or 2 ago and describes diffuse body pains described as sharp pain. She is also complaining of bilateral knee pain. States that the pain is typical for her sickle cell pain crisis. She denies chest pain or dyspnea. No fevers or chills. Pain is severe, constant, worse with movements. PFSH Past Medical History Anemia: Yes Arthritis: No Asthma: Yes Autoimmune Disease: No Anxiety: No Depression: No Heart Rhythm Problems: No Cancer: No Cardiovascular Problems: No High Cholesterol: No Chemotherapy: No Chest Pain: No Congestive Heart Failure: No COPD: Yes Cerebrovascular Accident: No Diabetes: No Diminished Hearing: No Endocrine: No Gastrointestinal Disorders: Yes GERD: No Genitourinary: No Headaches: Yes Hiatal Hernia: No Hypertension: Yes (Arterial) Immune Disorder: No Implanted Vascular Access Dvce: Yes (RIGHT CHEST PORT) Kidney Stones: No Musculoskeletal: No Neurologic: Yes Psychiatric: No Reproductive: No Respiratory: No Immunizations Current: Yes Migraines: No Pneumonia: Yes Radiation Therapy: No Renal Failure: No Seizures: Yes (History:7 years ago: [place]) Sickle Cell Disease: Yes (Sicle Cell) Sleep Apnea: No Thyroid Disease: No Ulcer: No ?: Not : 3 Para: 2 Miscarriage: 1 Tubal Ligation: Yes Past Surgical History Abdominal Surgery: Yes (Gallbladder removal) AICD: No Arteriovenous Shunt: No Body Medical Devices: screw in right hand Cardiac Surgery: No Section: Yes (X 2) Cholecystectomy: Yes Ear Surgery: No Endocrine Surgery: No Eye Surgery: No Genitourinary Surgery: No Gynecologic Surgery: Yes (Tubal / ) Insulin Pump: No Joint Replacement: No Oral Surgery: No Pacemaker: No Thoracic Surgery: No Other Surgery: Yes (PORT PLACEMENT) Social History Alcohol Use: No Tobacco Use: No Substance Use: No Allergies-Medications (Allergen,Severity, Reaction): Coded Allergies: metoclopramide (Verified Allergy, Severe, 02/12/17) morphine (Verified Allergy, Severe, 02/12/17) Reported Meds & Prescriptions Reported Meds & Active Scripts Active Reported Hydrea (Hydroxyurea) 500 Mg Cap 500 Mg PO DAILY Folic Acid 0.4 Mg Tab 1 Mg PO DAILY Review of Systems Except as stated in HPI: all other systems reviewed are Neg Physical Exam Narrative GENERAL: Well-developed, well-nourished, crying SKIN: Focused skin assessment warm/dry. No rashes. No warmth or erythema. HEAD: Atraumatic. Normocephalic. EYES: Pupils equal and round. No scleral icterus. No injection or drainage. ENT: Mucous membranes pink and moist. NECK: Trachea midline. No JVD. CARDIOVASCULAR: Regular rate and rhythm. No murmur appreciated. RESPIRATORY: No accessory muscle use. Clear to auscultation. Breath sounds equal bilaterally. GASTROINTESTINAL: Abdomen soft, non-tender, nondistended. MUSCULOSKELETAL: No obvious deformities. No clubbing. No cyanosis. No edema. All joints and extremities are without warmth or erythema. No dactylitis. NEUROLOGICAL: Awake and alert. No obvious cranial nerve deficits. Motor grossly within normal limits. Normal speech. PSYCHIATRIC: Appropriate mood and affect; insight and judgment normal. Data Data Last Documented VS Vital Signs Date Time Temp Pulse Resp B/P (MAP) Pulse Ox O2 Delivery O2 Flow Rate FiO2 03/25/17 23:51 73 16 106/56 (73) 100 Nasal Cannula 3.00 03/25/17 21:21 99.1 Orders Orders Basic Metabolic Panel (Bmp) (03/25/17 21:27) Complete Blood Count With Diff (03/25/17 21:27) Retic Count (03/25/17 21:27) Urinalysis - C+S If Indicated (03/25/17 21:27) Ed Urine Pregnancytest Poc (03/25/17 21:27) Sodium Chlor 0.9% 1000 Ml Inj (Ns 1000 M (03/25/17 22:30) Hydromorphone Pf Inj (Dilaudid Pf Inj) (03/25/17 22:30) Chest, Single Ap (03/25/17 ) Cath For Specimen (03/25/17 23:25) Labs Laboratory Tests Test 03/25/17 21:36 03/25/17 23:45 White Blood Count 23.2 TH/MM3 Red Blood Count 2.04 MIL/MM3 Hemoglobin 7.3 GM/DL Hematocrit 20.2 % Mean Corpuscular Volume 98.7 FL Mean Corpuscular Hemoglobin 35.7 PG Mean Corpuscular Hemoglobin Concent 36.2 % Red Cell Distribution Width 22.3 % Platelet Count 361 TH/MM3 Mean Platelet Volume 9.6 FL Neutrophils (%) (Auto) 50.0 % Lymphocytes (%) (Auto) 36.2 % Monocytes (%) (Auto) 10.4 % Eosinophils (%) (Auto) 2.0 % Basophils (%) (Auto) 1.4 % Neutrophils # (Auto) 11.6 TH/MM3 Lymphocytes # (Auto) 8.4 TH/MM3 Monocytes # (Auto) 2.4 TH/MM3 Eosinophils # (Auto) 0.5 TH/MM3 Basophils # (Auto) 0.3 TH/MM3 CBC Comment AUTO DIFF Differential Total Cells Counted 100 Neutrophils % (Manual) 60 % Band Neutrophils % 2 % Lymphocytes % 33 % Monocytes % 2 % Basophils % 1 % Neutrophils # (Manual) 14.8 TH/MM3 Promyelocytes 2 % Nucleated Red Blood Cells 7 /100 WBC Differential Comment FINAL DIFF MANUAL Platelet Estimate NORMAL Platelet Morphology Comment NORMAL Basophilic Stippling FAINT Sickle Cells 3+ [place] Bodies PRESENT Reticulocyte Count 16.2 % Absolute Reticulocyte Count 331.7 MIL/L Blood Urea Nitrogen 8 MG/DL Creatinine 0.48 MG/DL Random Glucose 110 MG/DL Calcium Level 8.1 MG/DL Sodium Level 136 MEQ/L Potassium Level 4.5 MEQ/L Chloride Level 106 MEQ/L Carbon Dioxide Level 23.0 MEQ/L Anion Gap 7 MEQ/L Estimat Glomerular Filtration Rate 186 ML/MIN Urine Color YELLOW Urine Turbidity CLEAR Urine pH 6.0 Urine Specific [place] 1.015 Urine Protein TRACE mg/dL Urine Glucose (UA) NEG mg/dL Urine Ketones NEG mg/dL Urine Occult Blood NEG Urine Nitrite NEG Urine Bilirubin NEG Urine Urobilinogen 8.0 MG/DL Urine Leukocyte Esterase NEG Urine RBC LESS THAN 1 /hpf Urine WBC 1 /hpf Urine Squamous Epithelial Cells <1 /hpf Urine Mucus FEW /lpf Microscopic Urinalysis Comment CULT NOT INDICATED MDM Medical Decision Making Medical Screen Exam Complete: Yes Emergency Medical Condition: Yes Differential Diagnosis Vaso-occlusive crisis, anemia, acute chest syndrome unlikely Narrative Course Vital signs reviewed. CBC: WBC 23.2, hemoglobin 7.3, hematocrit 20.2, platelets 361. BMP is unremarkable. Reticulocyte percent of 16.2% with an absolute reticulocyte count of 331. UA is not suggestive of UTI. Chest x-ray shows no acute disease. Patient was given a liter of normal saline IV and IV Dilaudid. On reassessment the patient states she is feeling much better and would like to go home. She tells me that she had diarrhea and an upset stomach prior to onset of symptoms, however is feeling much better now. Her abdominal exam is benign. She is afebrile. Elevated WBC is likely secondary to stress demargination. Patient be discharged home and advised follow-up with her plumbers and top helpers Dr. Puente this week. She was informed on when to return to the emergency department. She verbalizes understanding and agreement with plan. Diagnosis Primary Impression: Vasoocclusive sickle cell crisis Referrals: Juanis Puente MD 2 days Additional Instructions: Follow-up with Dr. Puente this week. Return to the emergency department for worsening symptoms or any other concerns. Disposition: 01 DISCHARGE HOME Condition: Stable Rudi Cash MD Mar 25, 2017 22:22
[2017-03-25 22:30] VITALS: BP 184/127; PULSE 87; RESP 22; O2SAT 97
[2017-03-25] MEDS ORDERED: HYDROmorphone HCL PF 1 MG/ML VIAL IV PUSH ONE (22:30)
[2017-03-25] MEDS ORDERED: SODIUM CHLOR 0.9% 1000 ML INJ 1,000 ML IV ONE (22:30)
[2017-03-25 22:44] LABS: POTASSIUM 4.5 MEQ/L (3.5-5.1)
[2017-03-25 23:41] LABS: BANDS 2 % (0-6); BASOPHILS 1 % (0-2); CORRECTED NUCLEATED RBC 7 /100 WBC (0-0); NEUTROPHIL # MANUAL DIFF 14.8 TH/MM3 (1.8-7.7); POLYS (SEG NEUTROPHILS) 60 % (16-70); PROMYELOCYTES 2 % (0-0); SICKLE CELLS 3+ (NORMAL); WBC DIFF SAMPLE 100
[2017-03-25 23:42] LABS: HOWELL-JOLLY BODIES PRESENT (NONE SEEN)
[2017-03-25 23:43] LABS: PLATELET ESTIMATE SMEAR NORMAL (NORMAL); PLATELET MORPHOLOGY NORMAL (NORMAL); SCAN/DIFF FINAL DIFF MANUAL
[2017-03-25 23:51] VITALS: BP 106/56; PULSE 73; RESP 16; O2SAT 100
--- NOTE | 2017-03-26 | RADRPT ---
EXAM DATE/TIME: 03/25/2017 23:35 [facility] COMPARISON: CHEST SINGLE AP, December 01, 2015, 8:27. INDICATIONS : Shortness of breath. MEDICAL HISTORY : Hypertension. Asthma, Sickle cell disease SURGICAL HISTORY : Port placement ENCOUNTER: Initial ACUITY: 1 day PAIN SCORE: 0/10 LOCATION: Bilateral chest FINDINGS: There is an [id number] in place from the right internal jugular approach. There is also a left sub clavian line in place. The tips overlie the SVC. The heart size is normal. The lungs are clear. No ef fusion is seen. CONCLUSION: No acute disease. Clifford Salvador MD on March 25, 2017 at 23:58 Board Certified Radiologist. This report was verified electronically.
[2017-03-26 00:03] LABS: BLOOD, URINE NEG (NEG); COMMENT (UR) CULT NOT INDICATED; CULTURE IF INDICATED CULT NOT INDICATED; GLUCOSE,URINE NEG (NEG); KETONE, URINE NEG (NEG); MUCUS URINE FEW /lpf (OCC); NITRITE,URINE NEG (NEG); SQUAMOUS EPITHELIAL CELL URINE <1 /hpf (0-5); URINE COLOR YELLOW (YELLW/STRAW)
== END 2017-03-26 01:01 | disposition home or self-care (01) ==
LOC: NEPD 21:06
DX: D57.00 Hb-SS disease with crisis, unspecified (principal); M25.561 Pain in right knee; M25.562 Pain in left knee
CPT/HCPCS: 71010; 80048; 81001; 84703; 85007; 85027; 85044; 96361; 96374; 99284; J1170; J1642; J7030